=== PATIENT | female | born 1950 | race Caucasian/White ===

== ENCOUNTER 2017-05-25 11:14 | Emergency (ER) | payer OTHER ==
[2017-05-25 11:21] VITALS: O2SAT 97
[2017-05-25] MEDS ORDERED: IBUPROFEN 600 MG TAB PO ONE (11:33)
--- NOTE | 2017-05-25 11:57 | EDPHY ---
H & P Time Seen by Provider: 05/25/17 11:54 HPI/ROS: HPI: This is a pleasant 67-year-old male who presents with Chief Complaint: Left wrist injury Location: Left wrist Quality: Injury Duration: 1 hour prior to arrival Signs and Symptoms: Positive pain, positive swelling, no radiation, no weakness , no numbness Timing: Sudden Severity: 6 to 7/10 Context: Patient is here visiting her friend. She went hiking by herself this morning. Her foot tripped over a rock and she fell forward, landing on her left hand with immediate pain and decreased range of motion. There were hikers nearby that splinted her and called for EMS. Right hand dominant. Modifying Factors: splint Comment: ROS: Eyes: No blurred vision Respiratory: No shortness of breath, no cough Cardiovascular: No chest pain Gastrointestinal: No nausea, no vomiting no diarrhea Genitourinary: No dysuria Extremities: No myalgias Neurologic: No weakness, no numbness Skin: No rashes Hematologic: No bruising, no bleeding MEDICAL/SURGICAL HISTORY: Generally healthy. Social History: Lives in [facility]. Smoking Status: Never smoked Physical Exam: CONSTITUTIONAL: Pleasant elderly adult white female, awake and alert, no obvious distress HEENT: Atraumatic and normocephalic, PERRL, EOMI. Tympanic membranes clear. . Oropharynx clear, no exudate and moist pink mucosa. Airway patent. No lymphadenopathy. No meningismus. Cardiovascular: Normal S1/S2, regular rate, regular rhythm, without murmur rub or gallop. PULMONARY/CHEST: Symmetrical and nontender. Clear to auscultation bilaterally Good air movement. No accessory muscle usage. ABDOMEN: Soft, nondistended, nontender, no rebound, no guarding, no peritoneal signs, no masses or organomegaly. No CVAT. EXTREMITIES: 2/2 radial pulses, radial and ulnar aspect swelling and tenderness to palpation; mild deformity noted. Able to wiggle fingers. No scaphoid tenderness. Left elbow has full extension and flexion. no clubbing, no cyanosis or edema. Right shoulder mild tenderness in AC joint; good internal rotation, external rotation and abduction. Arc 220 with minimal pain. Deltoid strength 5/5. NEUROLOGICAL: no focal neuro deficits. GCS 15. Light touch sensation intact. SKIN: Warm and dry, no erythema. no rash. Good capillary refill. Constitutional: Initial Vital Signs Temperature (C) 36.4 C 05/25/17 11:18 Heart Rate 83 05/25/17 11:18 Respiratory Rate 18 05/25/17 11:18 Blood Pressure 160/92 H 05/25/17 11:18 O2 Sat (%) 97 05/25/17 11:18 O2 Delivery Mode Room Air Allergies/Adverse Reactions: No Known Allergies Allergy (Unverified 05/25/17 11:17) Home Medications: Medication Instructions Recorded oxyCODONE/APAP 5/325 [Percocet 1 - 2 tab PO Q4H PRN #20 tab 05/25/17 5/325 (*)] Medical Decision Making - Diagnostics Imaging Results: Imaging Impressions Wrist X-Ray 05/25/17 11:27 Impression: 1. Acute impacted, angulated, and displaced intraarticular distal radius fracture. 2. Acute nondisplaced ulna styloid fracture. Shoulder X-Ray 05/25/17 11:31 Impression: 1. No acute fracture or AC separation. 2. Suspect rotator cuff pathology. Procedures: Procedure: Fracture treatment. The patient had x-rays taken and I confirmed that the patient had a fractured left distal radius. I do not believe that the patient will require reduction at a later date. A sugar-tong splint was applied by the tech. After application of the splint I returned and re-examined the patient. The splint was adequately immobilizing the joint and distal to the splint the patient's circulation and sensation was intact. ED Course/Re-evaluation: X-rays and oral medication ordered. Fall was accidental and mechanical in nature Patient politely refused any stronger pain medications than ibuprofen. Left rib wrist x-ray via PACS my read shows distal radial fracture; no scaphoid fracture; ulna styloid fracture No signs of neurovascular compromise. Placed in sugar-tong splint, RICE, orthopedic follow-up Right shoulder x-ray my read shows no humerus fracture clavicle fracture, dislocation. Suspect right shoulder strain; no signs of rotator cuff injury at this time. Differential Diagnosis: Fall in the elderly including but not limited to intracranial injury, long bone and pelvic bone fracture, spinal injury, and intrathoracic injury. - Data Points Medications Given: Discontinued Medications Hydrocodone Bitart/Acetaminophen ([place] 5/325) 1 tab PO EDNOW ONE Stop: 05/25/17 12:05 Last Admin: 05/25/17 12:22 Dose: 1 tab Ibuprofen (Motrin) 600 mg PO EDNOW ONE Stop: 05/25/17 11:34 Last Admin: 05/25/17 11:47 Dose: 600 mg Departure - Departure Disposition: Home, Routine, Self-Care Clinical Impression: Distal radius fracture, left Qualifiers: Encounter type: initial encounter Fracture type: closed Fracture morphology: other intra-articular Qualified Code(s): S52.572A - Other intraarticular fracture of lower end of left radius, initial encounter for closed fracture Right shoulder strain Qualifiers: Encounter type: initial encounter Qualified Code(s): S46.911A - Strain of unspecified muscle, fascia and tendon at shoulder and upper arm level, right arm , initial encounter Closed fracture of ulna, styloid process Qualifiers: Encounter type: initial encounter Fracture alignment: nondisplaced Laterality: left Qualified Code(s): S52.615A - Nondisplaced fracture of left ulna styloid process, initial encounter for closed fracture Condition: Good Instructions: Wrist Fracture in Adults (ED) Additional Instructions: Take anti-inflammatories and pain medications as needed. Apply ice for the next 24-48 hours 3 times per day. Keep the extremity elevated as much as possible to reduce swelling. Follow up with Orthopedics within 3-7 days. Return immediately to the ER if numbness, discoloring of fingers, uncontrolled pain. Referrals: DR CADY [Other] - As per Instructions Poly Humphries MD [Medical Doctor] - 5-7 days, call for appt. Prescriptions: oxyCODONE/APAP 5/325 [Percocet 5/325 (*)] 1 - 2 tab PO Q4H PRN #20 tab PRN Reason: Pain, Severe
[2017-05-25] MEDS ORDERED: HYDROCODONE/APAP 5/325 TAB PO ONE (12:04)
[2017-05-25 13:06] VITALS: BP 151/89; PULSE 72; RESP 15; TEMP 98.8
== END 2017-05-25 13:06 | disposition home or self-care (01) ==
DX: S52.572A Other intraarticular fracture of lower end of left radius, initial encounter for closed fracture (principal); S52.615A Nondisplaced fracture of left ulna styloid process, initial encounter for closed fracture; S46.911A Strain of unspecified muscle, fascia and tendon at shoulder and upper arm level, right arm, initial encounter; W01.198A Fall on same level from slipping, tripping and stumbling with subsequent striking against other object, initial encounter; Y99.8 Other external cause status; Y93.01 Activity, walking, marching and hiking
CPT/HCPCS: 73030; 73110; 99284; A4565